=== PATIENT | female | born 1955 | race Caucasian/White ===

== ENCOUNTER → 2016-12-02 | Outpatient (CLI) | payer OTHER ==
[~2016-12-02] MED LIST: ATORVASTATIN CA10 MG PO; BACLOFEN10 MG PO; BENTYL20 MG PO; CALCIUM 600 +1 EAC3; CELEXA20 MG PO; CITALOPRAM HBR40 MG PO; COUMADIN; COUMADIN2.5 MG PO; COUMADIN4 MG PO; DEPAKOTE ER250 MG PO; FERRO-TIME325 MG PO; FLEXERIL10 MG PO; FOSAMAX70 MG PO; GABAPENTIN300 M2 PO; GABAPENTIN300 MG PO; GLUCOPHAGE500 M1 PO; HYDROCODON-ACE1 EAC4 PO; HYDROCODON-ACE1 EAC9 PO; HYDROCODONE/APAP; INDERAL LA120 MG PO; INDERAL LA160 MG PO; LEXAPRO; LIPITOR20 MG PO; METFORMIN HCL500 M1 PO; OMEPRAZOLE20 M2 PO; OMEPRAZOLE40 M1 PO; OXYCODONE-ACET1 EAC1 PO; PAXIL PO; POLYSACC IRON150 MG PO; REQUIP0.5 MG PO; ROPINIROLE HCL0.5 MG PO; TOPAMAX; VITAMIN C500 M1 PO; WARFARIN SODIUM2 M1 PO; WARFARIN SODIUM2 MG PO; WARFARIN SODIUM3 M1; WARFARIN SODIUM3 M1 PO; ZOLPIDEM TARTRA10 MG PO; ZOLPIDEM TARTRAT5 MG PO; [UNRECOGNIZED DRUG - OTHER]
--- NOTE | ~2016-12-02 | MY11 ---
[facility] A Service of [facility] RADIOLOGY TEXT RESULTS PATIENT: ALICIA BOB LOCATION: [facility] : 55 UNIT #: [id number] AGE: [address]: CHAR BASS MD SEX: F ORDER DR: [id number] [address] [address] [id number] O MR#: [id number] Acc #: [id number] NAME: ALICIA BOB : 1955 SEX: F STUDY DATE/TIME: 12/02/2016 13:17 UNIT: [facility] ROOM: STUDY DESCRIPTION: MY Mammogram Screening Dig Jonatan Attending Physician: Char Bass Ordering Physician: Dick Bass M.D. Primary Care Physician: Char Bass MEDICAL IMAGING REPORT This report is preliminary unless electronic signature is present. EXAM Bilateral Digital Screening Mammogram with CAD INDICATION Breast cancer screening. 61-year-old asymptomatic female reports an aunt and a cousin with breast cancer. COMPARISON 06/26/2015, 05/03/2014, 03/22/2014, 03/29/2013, 03/27/2012, 02/21/2010, 07/29/2008, 07/11/2008, 05/28/2007 FINDINGS There are scattered fibroglandular tissues. No suspicious findings are present. IMPRESSION No mammographic evidence of malignancy. Annual screening mammography and clinical breast exam are recommended. A result letter will be sent to the patient. Patients over the age of 40 are entered into a reminder system with target due date for the next mammogram. BIRADS: 1 Negative Dictated by... Avery Catherine M.D. THIS IS AN ELECTRONICALLY VERIFIED REPORT [facility] A Service [facility] RADIOLOGY TEXT RESULTS PATIENT: ALICIA BOB LOCATION: [facility] : 55 UNIT #: [id number] AGE: [address]: CHAR BASS MD SEX: F ORDER DR: Avery Catherine M.D. at 12/04/2016 11:47 AM MARTINA/sea TD: 12/02/2016 22:18 JOB #: [id number] MEDICAL IMAGING REPORT Page 1 of 1
== END | disposition home or self-care (01) ==
LOC: SMAM 12:35
DX: Z12.31 Encounter for screening mammogram for malignant neoplasm of breast (principal); Z80.3 Family history of malignant neoplasm of breast
CPT/HCPCS: G0202

== ENCOUNTER → 2016-12-04 | Outpatient (CLI) | payer OTHER ==
--- NOTE | ~2016-12-04 | CR71 ---
[facility] A Service of [facility] & [facility] RADIOLOGY TEXT RESULTS PATIENT: ALICIA BOB LOCATION: [facility] : 55 UNIT #: [id number] AGE: [address]: Hipolito Monsalve MD SEX: F ORDER DR: [id number] [facility] [address] [facility] [place], [place] [address] [id number] O MR#: [id number] Acc #: [id number] NAME: ALICIA BOB : 1955 SEX: F STUDY DATE/TIME: 12/04/2016 10:20 UNIT: [facility] ROOM: STUDY DESCRIPTION: CR Chest Single View Attending Physician: Hipolito Monsalve M.D. Referring Physician: Hipolito Monsalve M.D. Ordering Physician: Hipolito Monsalve M.D. Primary Care Physician: Joel Mckeon MEDICAL IMAGING REPORT This report is preliminary unless electronic signature is present exam Portable chest. INDICATIONS Cough and shortness of breath for 4 years. COMPARISON 04/10/2010 FINDINGS Calcified granuloma in the left lung. Heart size is probably normal for technique. Visualized osseous structures are unremarkable. IMPRESSION No active disease. Dictated by... Gilberto Matos M.D. THIS IS AN ELECTRONICALLY VERIFIED REPORT Gilberto Matos M.D. at 12/04/2016 5:29 PM ARS/bd TD: 12/04/2016 13:04 JOB #: [id number] MEDICAL IMAGING REPORT Page 1 of 1 COPY
== END | disposition home or self-care (01) ==
LOC: CRAD 09:41
DX: R05 Cough (principal); R06.02 Shortness of breath
CPT/HCPCS: 71010

== ENCOUNTER → 2016-12-20 | Outpatient (CLI) | payer OTHER ==
--- NOTE | ~2016-12-20 | CT57 ---
[facility] A Service of [facility] & [facility] RADIOLOGY TEXT RESULTS PATIENT: ALICIA BOB LOCATION: [facility] : 55 UNIT #: [id number] AGE: [address]: Hipolito Monsalve MD SEX: F ORDER DR: [id number] [facility]. [place], [place] [address] [id number] O MR#: [id number] Acc #: [id number] NAME: ALICIA BOB : 1955 SEX: F STUDY DATE/TIME: 12/20/2016 9:48 UNIT: [facility] ROOM: STUDY DESCRIPTION: CT Chest Wo Cont Attending Physician: Hipolito Monsalve M.D. Referring Physician: Hipolito Monsalve M.D. Ordering Physician: Hipolito Monsalve M.D. Primary Care Physician: Joel [facility] IMAGING REPORT This report is preliminary unless electronic signature is present EXAM CT chest without contrast INDICATIONS Intermittent cough for 4-[address] of the chest was performed without contrast. Coronal and sagittal reformatted images were obtained. This CT exam was performed with one or more of the following radiation dose reduction techniques: automatic control, adjustment of mA and/or kV according to patient size, and iterative reconstruction. Comparison with 03/03/2015. FINDINGS There is no evidence for lymphadenopathy. There are calcified mediastinal or hilar lymph nodes. Small hiatal hernia. Stable trace pericardial fluid or thickening. Minimal dependent atelectasis or scarring. There is no dense consolidation or suspicious pulmonary nodule. Limited imaging of the upper abdomen is unremarkable. The bone windows are unremarkable. IMPRESSION No evidence for airspace consolidation or suspicious pulmonary nodule. Dictated by... Gilberto Matos M.D. THIS IS AN ELECTRONICALLY VERIFIED REPORT Gilberto Matos M.D. at 12/25/2016 11:21 AM TA/ayse TD: 12/21/2016 05:01 JOB #: [id number] [facility] A Service of [facility] & [facility] RADIOLOGY TEXT RESULTS PATIENT: ALICIA BOB LOCATION: [facility] : 55 UNIT #: [id number] AGE: [address]: Hipolito Monsalve MD SEX: F ORDER DR: MEDICAL IMAGING REPORT Page 1 of 1 COPY
== END | disposition home or self-care (01) ==
LOC: CCAT 09:28
DX: R05 Cough (principal)
CPT/HCPCS: 71250

== ENCOUNTER → 2016-12-24 | Outpatient (CLI) | payer OTHER ==
--- NOTE | ~2016-12-24 | CR243 ---
[facility] A Service of [facility] RADIOLOGY TEXT RESULTS PATIENT: ALICIA BOB LOCATION: [facility] : 55 UNIT #: [id number] AGE: [address]: Serafin Connor MD SEX: F ORDER DR: [id number] [id number] [facility]. [place], [place] [address] [id number] O MR#: [id number] Acc #: [id number] NAME: ALICIA BOB : 1955 SEX: F STUDY DATE/TIME: 12/24/2016 13:58 UNIT: [facility] ROOM: STUDY DESCRIPTION: CR Thoracic Spine 3 Views Attending Physician: Serafin Connor M.D. Referring Physician: Serafin Connor M.D. Ordering Physician: Serafin Connor M.D. Primary Care Physician: Dick Mckeon M.D. MEDICAL IMAGING REPORT This report is preliminary unless electronic signature is present EXAM Three views thoracic spine 12/24/2016 HISTORY Compression fracture per referring physician's history. Patient states mid back pain with frequent spasms for several months. Osteoporosis. COMPARISON CT chest without contrast bone windows 12/20/2016. FINDINGS The study is attenuated by the patient's body habitus. No acute thoracic vertebral body fracture or subluxation is seen. Disc space height appears fairly well preserved at each thoracic level. There is mild anterior osteophyte formation centered at predominantly T6-7 through T8-9. Surgical clips are seen near the left upper quadrant of the abdomen. Benign calcified granuloma in the left upper lobe. Mild asymmetric elevation right hemidiaphragm. Mild cardiac enlargement likely accentuated by low volume inspiration. IMPRESSION 1. No acute thoracic spine fracture or subluxation is seen. Mild marginal osteophyte formation in the mid to lower thoracic spine. 2. Size attenuated study. Dictated by... Kerri Ryan M.D. THIS IS AN ELECTRONICALLY VERIFIED REPORT [facility] A Service of [facility] RADIOLOGY TEXT RESULTS PATIENT: ALICIA BOB LOCATION: [facility] : 55 UNIT #: [id number] AGE: [address]: Serafin Connor MD SEX: F ORDER DR: Kerri Ryan M.D. at 12/27/2016 8:34 AM BC/kellie TD: 12/25/2016 06:46 JOB #: [id number] MEDICAL IMAGING REPORT Page 1 of 1 COPY
== END | disposition home or self-care (01) ==
LOC: CRAD 13:41
DX: M54.6 Pain in thoracic spine (principal); T14.8 Other injury of unspecified body region; M25.78 Osteophyte, vertebrae
CPT/HCPCS: 72072